=== PATIENT | male | born 1990 | race Caucasian/White ===

== ENCOUNTER → 2018-02-25 | Emergency (ER) | payer OTHER ==
[~2018-02-25] VITALS: Ht 188 cm; Wt 108.9 kg
--- NOTE | ~2018-02-25 | EKG ---
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
[2018-02-25 08:59] LABS: ABSOLUTE NEUTROPHILS 6.5 thou/uL (1.4-8.2); BASOPHILS 0.5 % (0.0-2.0); EOSINOPHILS 2.5 % (0.0-3.0); HEMOGLOBIN 16.5 gm/dL (14.0-18.0); LYMPHOCYTES 23.8 % (24.0-44.0); MCH 31.8 pg (26.0-34.0); MCHC 34.4 g/dL (28.0-37.0); MCV 92.3 fL (80.0-100.0); MONOCYTES 8.6 % (1.0-8.0); PLATELET COUNT 337 thou/uL (150-400); POLYS 64.6 % (36.0-66.0); RDW 13.3 % (10.5-14.5); WBC 10.1 thou/uL (4.0-11.0)
[2018-02-25 09:05] LABS: ANION GAP 11 mmol/L (7-16); BUN 11 mg/dL (7-18); CALCIUM 9.8 mg/dL (8.5-10.1); CHLORIDE 100 mmol/L (98-107); CO2 24 mmol/L (21-32); CREATININE 1.1 mg/dL (0.7-1.3); GLUCOSE 104 mg/dL (74-106); POTASSIUM 3.6 mmol/L (3.5-5.1); SODIUM 135 mmol/L (136-145)
[2018-02-25 09:09] LABS: TROPONIN-I <0.06 ng/mL (<0.06)
[2018-02-25 10:16] VITALS: BP 130/89
== END ==
LOC: ER 08:01
PROVIDERS: Emergency Medicine
DX: R07.89 Other chest pain (principal); F17.210 Nicotine dependence, cigarettes, uncomplicated; F41.9 Anxiety disorder, unspecified

== ENCOUNTER 2019-03-26 12:44 | Emergency (ER) | payer OTHER ==
[~2019-03-26] VITALS: Ht 188 cm; Wt 102.1 kg
[2019-03-26 12:56] LABS: ABSOLUTE NEUTROPHILS 14.3 thou/uL (1.4-8.2); BASOPHILS 0.4 % (0.0-2.0); EOSINOPHILS 0.7 % (0.0-3.0); HEMATOCRIT 45.9 % (42.0-52.0); HEMOGLOBIN 15.2 gm/dL (14.0-18.0); LYMPHOCYTES 11.5 % (24.0-44.0); MCHC 33.2 g/dL (28.0-37.0); MCV 93.3 fL (80.0-100.0); MONOCYTES 6.4 % (1.0-8.0); PLATELET COUNT 286 thou/uL (150-400); RBC 4.92 mil/uL (4.50-6.00); RDW 13.3 % (10.5-14.5); WBC 17.6 thou/uL (4.0-11.0)
[2019-03-26 13:08] LABS: ANION GAP 9 mmol/L (7-16); BUN 14 mg/dL (7-18); CALCIUM 10.2 mg/dL (8.5-10.1); CHLORIDE 100 mmol/L (98-107); CO2 28 mmol/L (21-32); GLUCOSE 109 mg/dL (74-106); SODIUM 137 mmol/L (136-145)
[2019-03-26] MEDS ORDERED: SERTRALINE HCL50 MG PO (13:08)
[2019-03-26] MEDS ORDERED: BUSPIRONE HCL10 MG PO (13:08)
[2019-03-26 13:18] LABS: ALBUMIN 4.4 g/dL (3.4-5.0); SGOT 35 U/L (15-37); SGPT 39 U/L (30-65); TOTAL BILIRUBIN 0.6 mg/dL (<0.1-1.0); TOTAL PROTEIN 8.5 g/dL (6.4-8.2); TROPONIN-I <0.06 ng/mL (<0.06)
[2019-03-26] MEDS ORDERED: VALIUM5 MG PO (16:58)
[2019-03-26] MEDS ORDERED: ALEVE220 MG PO (16:58)
[2019-03-26] MEDS ORDERED: HEARTBURN PREVE20 MG PO (16:58)
[2019-03-26 17:11] VITALS: BP 141/82
--- NOTE | 2019-03-27 07:16 | EKG ---
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 : 1990 Requested By: Opal Briggs Order Number: [id number] MD: Ganesh Rincon Measurements Intervals [place] Rate: 89 P: 72 [place]: 176 QRS: 32 QRSD: 101 T: 40 QT: 362 QTc: 441 Interpretive Statements Sinus rhythm Normal tracing Compared to ECG 02/25/2018 08:15:47 No significant change was found Electronically Signed On 03-27-2019 7:16:38 CDT by Ganesh Rincon [email or web address] ��������������������������������������������� <ELECTRONICALLY SIGNED> ���������������������������������������� By: Ganesh Rincon MD, [facility] ��������������������������������������������� 03/27/19 0716 1245 1245 Ganesh Rincon MD, FACC /EPI
== END 2019-03-26 17:12 | disposition home or self-care (01) ==
LOC: ER 12:44
PROVIDERS: Emergency Medicine Emergency Medical Services
DX: R07.89 Other chest pain (principal); F41.9 Anxiety disorder, unspecified; F17.210 Nicotine dependence, cigarettes, uncomplicated